=== PATIENT | female | born 1945 | race African-American/Black ===

== ENCOUNTER 2023-09-02 06:49 | Inpatient (IN) | payer MEDICARE, OTHER, SELFPAY ==
--- NOTE | 2023-07-29 09:55 | CM ---
Patient is scheduled for a R TK Revision on 09/02/23. Spoke with patient prior to surgery via telephone. Patient had a R TKR (2018) and L TKR (2019) at . Reintroduced role of Orthopedic Navigator. Patient reports that she lives with her and
son in a two story home. There are seven steps to enter and a flight of steps to the second floor (left ascending rail). There is no first floor bathroom. She currently functions independently. She has a raised toilet seat, commode and cane. She has
never had VN services. PCP is Cuba Al.
Discussed orthopedic program and post surgical plans. Reviewed anticipated length of stay and that goal is for her to return home at discharge. Also reviewed outpatient PT. Patient is in agreement with tentative plan and will go directly to
outpatient PT. She will go to [facility]. She will have support from her and son when she goes home.
Patient will complete online education.
Plan: Orthopedic Navigator will remain available to assist with the care of patient and will reassess discharge needs after surgery.
[2023-08-12 12:33] VITALS: BMI 37.8
[2023-08-12 14:12] VITALS: BMI 37.8
[2023-08-12 14:19] LABS: Hematocrit 39.2 % (37.0-47.0); Hemoglobin 12.9 g/dL (12.0-16.0); Mean Corp Hgb Conc. 32.9 g/dL (33.0-37.0); Mean Corpuscular Hgb 30.2 pg (27.0-31.0); Mean Corpuscular Volume 91.8 fL (81.0-99.0); Mean Platelet Volume 10.5 fL (7.4-10.4); Platelet Count 300 10^3/uL (130-400); Red Blood Cell Count 4.27 10^6/uL (4.20-5.40); Red Cell Dist. Width 13.5 % (11.5-14.5)
[2023-08-12 14:50] LABS: Glycohemoglobin (HgbA1c) 5.6 % (4.0-5.6)
--- NOTE | 2023-08-12 15:13 | HPS.HSE ---
Family Physician
-
Family Physician: Cuba Al
Chief Complaint
-
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
History of Present Illness
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 The patient previously underwent an uncomplicated right total knee arthroplasty in September [address] Jimenez
Scott. Despite previous surgery, the patient does report significant right knee pain which most notably occurs with walking. She notes that her current right knee pain is greatly interfering with her activities of daily living and is overall
impacting her quality of life. A right knee x-ray from 09/26/2022 demonstrated obvious tibial loosening. Thankfully, previous blood work did not reveal any signs of infection with a white blood cell count of 5.9, an ESR of 25, and a CRP <5. She will
undergo a revision of her right total knee arthroplasty. Initially, this was to take place in November 2022; however, it was postponed due to needing treatment for mycosis fungoides and lichenoid dermatitis of the right lower extremity. Thankfully,
these diagnoses have improved with topical corticosteroids and phototherapy and she is now stable to proceed with surgery per her income tax preparer. She denies any current complaints today such as chest pain, shortness of breath, palpitations, nausea,
vomiting, diarrhea, lightheadedness, dizziness, cough, sore throat, or fever.
Medical History
Past Medical History
Past Medical History: Reports Other
Additional Past Medical History:
1. Osteoarthritis, status post right total knee arthroplasty, 09/2017, and left total knee arthroplasty, 10/2018, by Dr. Tony Chavez.
2. Hypertension.
3. Hypercholesterolemia, diet-controlled.
4. Venous varicosities.
5. GERD.
6. Diverticulosis.
7. Umbilical hernia, asymptomatic.
8. Remote migraines.
9. Balance difficulties.
10. Peripheral neuropathy.
11. Scoliosis.
12. Stress incontinence.
13. History of hyperthyroidism, status post Propylthiouracil.
14. History of iron deficiency anemia.
15. Mycosis fungoides, treated with phototherapy.
16. Lichenoid dermatitis of right lower extremity, improved with corticosteroids.
17. Eczema.
18. Osteopenia.
19. Macular degeneration.
20. Tinnitus.
21. Obesity, BMI 37.8.
Past Surgical History: Reports Other
Additional Past Surgical History:
1. Left total knee arthroplasty, 10/2018, by Dr. Tony Chavez.
2. Right total knee arthroplasty, 09/2017, by Dr. Tony Chavez.
3. Right wrist fracture ORIF with retained hardware.
4. Hysterectomy/oophorectomy.
5. .
6. D&C.
7. Right upper extremity lipoma excision.
8. Hemorrhoidectomy.
9. Excision of benign salivary tumor.
10. R[place]y teeth extraction.
11. Multiple colonoscopies.
Social History
Tobacco: Non-smoker
Alcohol: None
Personal:
Living: Other (The patient lives in a two-story home with her and son.)
Family History
Family History: Not pertinent
Allergies / Home Medications
Allergy/Medication List:
Home medications:
1. Differin 1 application topical at bedtime as needed.
2. Amlodipine 2.5 mg p.o. every evening.
3. Anacin 2 tablets p.o. 1-2 times per month.
4. Calcium citrate 200 mg p.o. every other day.
5. Refresh eye drops 1 drop ophthalmic daily.
6. Centrum Silver multivitamin 1 tablet p.o. daily.
7. Cholecalciferol 25 mcg p.o. every other day.
8. Clobetasol 1 application topical daily as needed.
9. Hydrocortisone 1 application topical daily as needed.
10. Replenix 1 dose topical at bedtime as needed.
11. Nasal saline 2 sprays intranasal daily as needed.
12. Triamcinolone acetonide 1 application topical daily as needed.
Allergies: Adhesive. Antihistamines. Erythromycin. Formaldehyde. Nitroglycerin. Latex. Methimazole. Mold. Pollen. Penicillin. Dust mites. Pet dander.
Review of Systems
-
A 12 point ROS was completed and negative except as noted: Yes
Physical Exam
Vital Signs
Blood pressure 145/89. Heart rate 82. Respirations 18. Pulse ox 99% on room air.
Height 4 feet, 9 inches. Weight 79.2 kg. BMI 37.8.
Physical Exam
General: Well Developed, Well Nourished and No Apparent Distress
HEENT: NormoCephalic, Moist mucous membranes, Atraumatic and PERRLA
Respiratory: Clear
Cardiac: Regular Rhythm
GI: Soft, Non Tender, Non Distended and Other (Reducible umbilical hernia. )
Musculoskeletal: Other (Right knee: moderate to large effusion. No gross instability. Range of motion 0-120. Tenderness over proximal tibia. Dark pigmentations noted from distal end of prior right total knee arthroplasty scar to right foot and
ankle.)
Skin: Warm and Dry
Neuro: AO x 3 and Nonfocal/grossly intact
Laboratory Results
-
08/12/23 12:23
DIAGNOSTIC STUDIES as of 08/12/2023: Sodium 138. Potassium 4.0. BUN 15. Creatinine 0.6. Glucose 79. Hemoglobin A1c 5.6. Calcium 9.7. AST 34. ALT 24. Albumin 4.7. Blood type O positive. MRSA screen negative.
EKG 08/12/2023: Normal sinus rhythm. Nonspecific T wave abnormality. When compared to the previous EKG of 11/14/2022, no significant change was found.
Impression/Plan
-
CLEARANCES:
1. Primary medical, Dr. Cuba Al, pending.
� � Primary medical phone number: [phone].
2. Dental cleared.
�
IMPRESSION/PLAN:
1. 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 Tony Chavez on 09/02/2023. The benefits and risks of the procedure have been explained to the patient. The patient understands these risks and
wishes to proceed.
2. DVT prophylaxis: Enteric coated Aspirin with bilateral venous compression devices.
3. Balance difficulties: The patient will be placed on fall precautions post-operatively.
4. Allergy to adhesive: The patient does recall a reaction to the Aquacel dressing used with her prior right total knee arthroplasty. This has been discussed with her surgeon pre-operatively. Alternatives to the Aquacel dressing will be considered.
Patient's home phone number: [phone].
Patient's cell phone number: [phone].
Patient's contact (Lio Rosario Sr. - Spouse): [phone].
[2023-08-12 15:28] LABS: ALT (SGPT) 24 U/L (0-35); AST (SGOT) 34 U/L (14-36); Albumin 4.7 g/dl (3.5-5.0); Alkaline Phosphatase 72 U/L (38-126); Blood Urea Nitrogen 15 mg/dl (7-17); Calcium 9.7 mg/dl (8.4-10.2); Carbon Dioxide 32 mmol/L (22-30); Chloride 99 mmol/L (98-107); Estimated Creatinine Clearance 67 ml/min; Glucose 79 mg/dl (70-99); Sodium 138 mmol/L (135-145); Total Bilirubin 0.8 mg/dl (0.2-1.3); Total Protein 8.1 g/dl (6.3-8.2); eGFR > 60.00
[2023-09-02] VITALS (11 sets, daily range): BP systolic 117–142; BP diastolic 56–70; PULSE 78; O2SAT 95–96
[2023-09-02] MEDS: TYLENOL 650 MG PO ×3 (09:38→20:25)
[2023-09-02] MEDS: CELEBREX 200 MG PO (09:38)
[2023-09-02] MEDS: NORMOSOL-R 1000 IV ×2 (09:44→13:59)
[2023-09-02] MEDS: ROXICODONE 5 MG PO (13:59)
--- NOTE | 2023-09-02 14:27 | W.PN.ORTHO ---
Today's Communication / Plan
-
D/c when clinically stable.
Assessment
.
Distal Motor Intact: Yes
Dressing:
Clean, dry and intact.
Assessment:
Mechanical failure of R TKA s/p Revision of R TKA w/ Dr Chavez 09/02/23
DVT prophylaxis - Enteric coated ASA, b/l venous foot pumps
HTN - + parameters - monitor BP
GERD - add Pepcid HS
Balance difficulties - on fall precautions
Peripheral neuropathy - consider Gabapentin or Lyrica
History of iron deficiency anemia - non-invasive hgb in AM
OA, status post R TKA, 09/2017, and L TKA, 10/2018, by Dr Chavez
Hypercholesterolemia, diet-controlled
Venous varicosities
Diverticulosis
Umbilical hernia, asymptomatic.
Remote migraines
Scoliosis
Stress incontinence
History of hyperthyroidism, status post Propylthiouracil
Mycosis fungoides, treated with phototherapy
Lichenoid dermatitis of right lower extremity, improved with corticosteroids
Eczema
Osteopenia
Macular degeneration
Tinnitus
Obesity, BMI 37.8.
Plan
.
Surgery / Date: Revision of R TKA w/ Dr Chavez 09/02/23
DVT Prophylaxis: Aspirin
Activity:
Out of bed.
PT/OT
Discharge Plan: Home w/ Outpatient PT
Subjective
.
.:
Patient resting comfortably in PACU.
R knee pain minimal and currently well tolerated.
Denies any new significant complaints.
Vital Signs and Labs
.
Vital Signs and Labs:
Lab Results
08/12/23 12:23
08/12/23 12:23
Physical Exam
-
HEENT: No pallor, cyanosis, or jaundice. Throat clear.
NECK: Supple. No JVD.
RESPIRATORY: Lungs clear to auscultation.
CVS: S1, S2 normal. RRR.�
ABDOMEN: Soft, non-tender. No distension. Obese.
EXTREMITIES: Strength equal, no calf pain with palpation/dorsiflexion. Calves soft.
SHEET ROCK INSTALLATION HELPER: AOx3. No focal deficits. educational diagnostician grossly intact
--- NOTE | 2023-09-02 15:05 | PTCARENOTE ---
Addendum entered by Yany Linarse RN 09/02/23 16:47:
The patient is alert and oriented but is drowsy still.
Original Note:
Patient admitted from pacu post right total knee revision.The patient rates her pain at a 3 out of 10.Neurovascular assessment is within normal limits and ongoing.Vital signs are stable.The Aquacell dressing is dry and intact without any
drainage.There is an melvin wrap on which is to be taken off at dinnertime.The patient is in her bed with the call black in reach.Her is at her bedside.
[2023-09-02] MEDS: TYLENOL PO (18:22)
[2023-09-02] MEDS: ASPIRIN ENTERIC COATED 325 MG PO (18:23)
[2023-09-02] MEDS: ANCEF 5 IV (18:28)
[2023-09-02] MEDS: BACTROBAN 2% OINTMENT 1 APPLIC NASAL (20:24)
[2023-09-02] MEDS: COLACE 100 MG PO (20:24)
[2023-09-02] MEDS: SENOKOT 17.1999999999999993 MG PO (20:24)
[2023-09-02] MEDS: DECADRON 4 MG PO (20:25)
[2023-09-02] MEDS: PEPCID 20 MG PO (21:55)
[2023-09-03] MEDS: TYLENOL PO ×3 (00:15→17:10)
[2023-09-03] MEDS: ANCEF 5 IV (03:13)
[2023-09-03 03:40] VITALS: BP 132/68
[2023-09-03 07:00] VITALS: BP 132/106
[2023-09-03] MEDS: REFRESH CELLUVISC GEL 1 DROPS OPHTH (08:04)
[2023-09-03] MEDS: COLACE 100 MG PO (08:05)
[2023-09-03] MEDS: TYLENOL 650 MG PO ×2 (08:05→13:41)
[2023-09-03] MEDS: DECADRON 4 MG PO (08:05)
[2023-09-03] MEDS: BACTROBAN 2% OINTMENT 1 APPLIC NASAL (08:05)
[2023-09-03] MEDS: VITAMIN D3 (cholecalciferol) 25 MCG PO (08:06)
[2023-09-03] MEDS: ASPIRIN ENTERIC COATED 325 MG PO (08:06)
[2023-09-03] MEDS: SENOKOT 17.1999999999999993 MG PO (08:06)
[2023-09-03] MEDS: CELEBREX 200 MG PO (08:06)
[2023-09-03] MEDS: ROXICODONE 5 MG PO (08:17)
--- NOTE | 2023-09-03 08:25 | CM ---
Addendum entered by Niki Eller 09/03/23 11:32:
Patient did well in therapy. She has no concerns about going home and has updated her .
Original Note:
Reviewed chart and held rounds with PT, OT and nursing. Patient admitted as planned for R TK Revision. Met with patient at bedside. Confirmed information previously obtained for assessment. Also discussed discharge plans. The plan is for patient to
return home at discharge. She will have support from her and son when she goes home. Patient will go directly to outpatient PT and will go to [facility]. She has an appointment scheduled for Saturday, 09/03.
Patient has a rolling walker, cane, raised toilet seat, commode, stair glide to the basement and shower seat.
She will use [facility] pharmacy for discharge prescriptions.
[2023-09-03 10:10] VITALS: BP 136/72; PULSE 72; O2SAT 99
[2023-09-03 11:41] VITALS: BP 130/68; PULSE 85; O2SAT 99
--- NOTE | 2023-09-03 11:41 | W.PN.ORTHO ---
Today's Communication / Plan
-
D/c today since clinically stable, did well w/ both PT and OT.
Assessment
.
Distal Motor Intact: Yes
Dressing:
Trace old incisional bleeding. Dressing otherwise C/D/I.
Assessment:
Mechanical failure of R TKA s/p Revision of R TKA w/ Dr Chavez 09/02/23
DVT prophylaxis - Enteric coated ASA, b/l venous foot pumps
HTN - + parameters - BPs stable
GERD - added Pepcid HS
Balance difficulties - on fall precautions
Peripheral neuropathy - consider Gabapentin or Lyrica
History of iron deficiency anemia - will check non-invasive hgb this AM
OA, status post R TKA, 09/2017, and L TKA, 10/2018, by Dr Chavez
Hypercholesterolemia, diet-controlled
Venous varicosities
Diverticulosis
Umbilical hernia, asymptomatic.
Remote migraines
Scoliosis
Stress incontinence
History of hyperthyroidism, status post Propylthiouracil
Mycosis fungoides, treated with phototherapy
Lichenoid dermatitis of right lower extremity, improved with corticosteroids
Eczema
Osteopenia
Macular degeneration
Tinnitus
Obesity, BMI 37.8
Plan
.
Surgery / Date: Revision of R TKA w/ Dr Chavez 09/02/23
DVT Prophylaxis: Aspirin
Activity:
Out of bed.
PT/OT
Discharge Plan: Home w/ Outpatient PT
Subjective
.
.:
Patient resting comfortably in her chair this AM.
R knee pain minimal and currently well tolerated.
Mild sore throat from GA yesterday; otherwise, no other complaints.
Eager for potential d/c today.
Vital Signs and Labs
.
Vital Signs and Labs:
Lab Results
08/12/23 12:23
08/12/23 12:23
Temp Pulse Resp BP Pulse Ox
98.0 F 84 18 132/106 98
09/03/23 07:00 09/03/23 07:00 09/03/23 07:00 09/03/23 07:00 09/03/23 07:00
Physical Exam
-
HEENT: No pallor, cyanosis, or jaundice. Throat clear.
NECK: Supple. No JVD.
RESPIRATORY: Lungs clear to auscultation.
CVS: S1, S2 normal. RRR.�
ABDOMEN: Soft, non-tender. No distension. Obese.
EXTREMITIES: Mild post-op R knee edema. Strength equal, no calf pain with palpation/dorsiflexion. Calves soft.
FLOODPLAIN MANAGER: AOx3. No focal deficits. tile presser grossly intact
--- NOTE | 2023-09-03 11:54 | W.DS.TRANS ---
DC Summary - Lang Interpreter
-
Discharge Instructions:
Sleep Apnea Risk Intermediate
Discharge Diagnosis/Procedures Mechanical failure of R TKA s/p Revision of R
TKA w/ Dr Chavez 09/02/23
Diet Regular
Activity As tolerated,With Walker
Driving Restrictions Not until seen by your Dr
Bathing Restrictions OK to Shower
Other Services PT
Wound Care Dressing to be removed 1 week post-surgery.
[place] to be removed at 2 week follow-up
appointment with surgeon's office.
Instructions:
Stand-Alone Forms: Total Hip/Knee Replacement D/C
Changes to Home Medications: Yes
Discharge Medications:
DC Medications w/original date entered in [facility]
vrosyfia-gxk-ltxyu acid 0.4 mg-lycopene 300 mcg-lutein 250 mcg tablet (Centrum Silver) 1 ea PO DAILY 09/10/17
calcium citrate 200 mg (950 mg) tablet 200 mg PO Q48H 11/07/22
cholecalciferol (vitamin D3) 25 mcg (1,000 unit) tablet (Vitamin D3) 25 mcg PO Q48H 11/07/22
carboxymethylcellulose sodium 1 % eye liquid gel drops 1 drp ophthalmic (eye) DAILY 11/14/22
Replenix 1 dose topical HSPRN PRN rash 08/07/23
adapalene 0.1 % topical gel (Differin) 1 applic topical HSPRN PRN skin rash 08/07/23
clobetasol 0.05 % topical ointment 1 applic topical DAILYPRN PRN dry skin on hands 08/07/23
hydrocortisone 1 % topical cream 1 applic topical DAILYPRN PRN skin rash 08/07/23
triamcinolone acetonide 0.1 % lotion 1 applic topical DAILYPRN PRN skin eruptions 08/07/23
mupirocin 2 % topical ointment 1 applic intranasal BID #1 tube 08/12/23
sodium chloride 0.65 % nasal spray aerosol (Saline Nasal) 2 spray intranasal DAILYPRN PRN nasal congestion 08/12/23
acetaminophen 500 mg tablet (Tylenol Extra Strength) 1,000 mg (2 x 500 mg) PO Q6H #60 tabs 09/03/23
amlodipine 2.5 mg tablet 2.5 mg PO QPM #30 tabs 09/03/23
aspirin 325 mg tablet,delayed release 325 mg PO DAILY #30 tabs 09/03/23
celecoxib 200 mg capsule 200 mg PO DAILY #30 caps 09/03/23
dexamethasone 4 mg tablet 4 mg PO BID #5 tabs 09/03/23
docusate sodium 100 mg capsule 100 mg PO BID #30 caps 09/03/23
famotidine 20 mg tablet 20 mg PO HS #30 tabs 09/03/23
ondansetron HCl 4 mg tablet 4 mg PO Q6H PRN nausea and vomiting #30 tabs 09/03/23
oxycodone 5 mg tablet 5 - 10 mg (1 - 2 x 5 mg) PO Q6H PRN moderate-severe pain #30 tabs 09/03/23
sennosides 8.6 mg tablet (Senna Laxative) 17.2 mg (2 x 8.6 mg) PO BID #30 tabs 09/03/23
Home Medication Changes
acetaminophen 500 mg tablet (Tylenol Extra Strength) 1,000 mg (2 x 500 mg) PO Q6H #60 tabs 09/03/23
aspirin 325 mg tablet,delayed release 325 mg PO DAILY #30 tabs 09/03/23
celecoxib 200 mg capsule 200 mg PO DAILY #30 caps 09/03/23
dexamethasone 4 mg tablet 4 mg PO BID #5 tabs 09/03/23
docusate sodium 100 mg capsule 100 mg PO BID #30 caps 09/03/23
famotidine 20 mg tablet 20 mg PO HS #30 tabs 09/03/23
ondansetron HCl 4 mg tablet 4 mg PO Q6H PRN nausea and vomiting #30 tabs 09/03/23
oxycodone 5 mg tablet 5 - 10 mg (1 - 2 x 5 mg) PO Q6H PRN moderate-severe pain #30 tabs 09/03/23
sennosides 8.6 mg tablet (Senna Laxative) 17.2 mg (2 x 8.6 mg) PO BID #30 tabs 09/03/23
Pending Results: No
[2023-09-03 12:00] VITALS: BP 152/61
[2023-09-03] MEDS: ANESTHETIC LOZENGE 1 LOZENGE PO (14:57)
[2023-09-03 15:00] VITALS: BP 147/63
== END 2023-09-03 17:27 | disposition home or self-care (01) | DRG 468 ==
LOC: 2 SOUTH 06:49
PROVIDERS: ADMITTING PHYSICIAN Specialist; FAMILY PHYSICIAN Family Medicine
PROC: 0SPC0JZ Removal of Synthetic Substitute from Right Knee Joint, Open Approach (ICD-10-PCS; 2023-09-02)
PROC: 0SRC0J9 Replacement of Right Knee Joint with Synthetic Substitute, Cemented, Open Approach (ICD-10-PCS; 2023-09-02)
DX: T84.092A Other mechanical complication of internal right knee prosthesis, initial encounter (principal); Y79.2 Prosthetic and other implants, materials and accessory orthopedic devices associated with adverse incidents; I10 Essential (primary) hypertension; K21.9 Gastro-esophageal reflux disease without esophagitis; G62.9 Polyneuropathy, unspecified; E66.9 Obesity, unspecified; Z68.37 Body mass index [BMI] 37.0-37.9, adult
CPT/HCPCS: 36415; 73560; 80053; 83036; 85027; 86850; 86900; 86901; 87070; 93005; 97110; 97116; 97163; 97167; 97530; 97535; C1713; C1762; C1776